=== PATIENT | female | born 1995 | race Caucasian/White ===

== ENCOUNTER 2023-07-30 16:56 | Emergency (ER) | payer OTHER ==
[2023-07-30 17:10] VITALS: BMI 28.3
[2023-07-30] MEDS ORDERED: SODIUM CHLORIDE 0.9% 500 ML INFUS.BAG IV ONE (19:50)
[2023-07-30] MEDS ORDERED: ACETAMINOPHEN 500 MG TABLET (FP) PO ONE (19:50)
[2023-07-30] MEDS ORDERED: ACETAMINOPHEN 500 MG TABLET (FP) ONE (20:03)
[2023-07-30 20:29] LABS: BASO % 0.6 % (0-2.0); EOS % 1.5 % (0-4.5); HEMATOCRIT 41.8 % (32.4-45.2); HEMOGLOBIN 13.6 GM/dL (10.7-15.3); LYMPH % 32.6 % (8-40); MCH 30.7 pg (25.7-33.7); MCHC 32.6 g/dl (32.0-36.0); MEAN CELL VOLUME 94.2 fl (80-96); MEAN PLT VOLUME 7.9 fl (7.5-11.1); NEUT % 59.3 % (42.8-82.8); PLATELET COUNT 308 10^3/uL (134-434); RBC 4.43 M/mm3 (3.60-5.2); RDW 13.2 % (11.6-15.6); WHITE BLOOD COUNT 11.1 K/mm3 (4.0-10.0)
[2023-07-30 20:38] LABS: URINE APPEARANCE CLEAR; URINE BILIRUBIN NEGATIVE (NEGATIVE); URINE COLOR YELLOW; URINE GLUCOSE (UA) NEGATIVE (NEGATIVE); URINE KETONE NEGATIVE (NEGATIVE); URINE LEUK ESTERASE NEGATIVE (NEGATIVE); URINE NITRITE NEGATIVE (NEGATIVE); URINE PROTEIN NEGATIVE (NEGATIVE); URINE UROBILINOGEN 0.2 mg/dL (0.2-1.0)
[2023-07-30 20:45] LABS: POTASSIUM 3.9 mmol/L (3.5-5.1)
[2023-07-30 20:47] LABS: CALCIUM 9.2 mg/dL (8.5-10.1)
[2023-07-30 20:48] LABS: BLOOD UREA NITROGEN 11.6 mg/dL (7-18)
[2023-07-30 20:51] LABS: CREATININE 0.6 mg/dL (0.55-1.3)
[2023-07-30 20:52] LABS: BILIRUBIN,TOTAL 0.2 mg/dL (0.2-1); TOT PROT 8.2 g/dl (6.4-8.2)
[2023-07-30] MEDS ORDERED: KETOROLAC TROMETHAMINE 30 MG/1 ML VIAL IVPUSH ONE (21:26)
[2023-07-30] MEDS ORDERED: KETOROLAC TROMETHAMINE 30 MG/1 ML VIAL ONE (21:27)
[2023-07-30] MEDS ORDERED: AMOX TR/POT CLAV 875MG/125MG TABLETS (FP) PO ONE (23:21)
[2023-07-30] MEDS ORDERED: AMOX TR/POT CLAV 875MG/125MG TABLETS (FP) ONE (23:22)
[2023-07-30 23:27] VITALS: BP 139/72; PULSE 70; RESP 18; TEMP 97.9
== END 2023-07-30 23:27 | disposition home or self-care (01) ==
LOC: JERFT 16:56
PROC: 3E0333Z Introduction of Anti-inflammatory into Peripheral Vein, Percutaneous Approach (ICD-10-PCS; principal; 2023-07-30)
DX: R50.9 Fever, unspecified (principal); R51.9 Headache, unspecified; R53.83 Other fatigue; J01.90 Acute sinusitis, unspecified; Z20.822 Contact with and (suspected) exposure to COVID-19
CPT/HCPCS: 0241U-QW; 36415; 71046-TC-FY; 80053; 81003; 84703; 85025; 87070; 87086; 87205; 87491; 87591; 87661; 99284-25

== ENCOUNTER 2023-10-14 12:49 | Emergency (ER) | payer OTHER ==
[2023-10-14 12:58] VITALS: BP 127/66; PULSE 85; RESP 18; TEMP 97.6; BMI 29.2
[2023-10-14 14:51] LABS: BASO % 0.4 % (0-2.0); EOS % 1.1 % (0-4.5); LYMPH % 25.7 % (8-40); MCHC 34.2 g/dl (32.0-36.0); MEAN CELL VOLUME 93.6 fl (80-96); MEAN PLT VOLUME 9.1 fl (7.5-11.1); MONO % 5.7 % (3.8-10.2); NEUT % 67.1 % (42.8-82.8); RBC 4.06 M/mm3 (3.60-5.2); RDW 12.8 % (11.6-15.6); WHITE BLOOD COUNT 12.2 K/mm3 (4.0-10.0)
[2023-10-14 14:53] LABS: PLATELET COUNT 296 10^3/uL (134-434)
[2023-10-14 15:01] LABS: POTASSIUM 5.3 mmol/L (3.5-5.1)
[2023-10-14 15:03] LABS: BLOOD UREA NITROGEN 8.6 mg/dL (7-18); CALCIUM 9.2 mg/dL (8.5-10.1)
[2023-10-14 15:06] LABS: CREATININE 0.5 mg/dL (0.55-1.3)
[2023-10-14 16:11] LABS: PH,URINE 5.5 (5.0-8.0); URINE APPEARANCE CLEAR; URINE BILIRUBIN NEGATIVE (NEGATIVE); URINE COLOR YELLOW; URINE GLUCOSE (UA) NEGATIVE (NEGATIVE); URINE KETONE NEGATIVE (NEGATIVE); URINE LEUK ESTERASE NEGATIVE (NEGATIVE); URINE NITRITE NEGATIVE (NEGATIVE); URINE PROTEIN NEGATIVE (NEGATIVE); URINE UROBILINOGEN 0.2 mg/dL (0.2-1.0)
== END 2023-10-14 18:35 | disposition home or self-care (01) ==
LOC: JER 12:49
DX: O26.891 Other specified pregnancy related conditions, first trimester (principal); R10.2 Pelvic and perineal pain; Z3A.01 Less than 8 weeks gestation of pregnancy
CPT/HCPCS: 36415; 76817-TC; 80048; 81003; 84702; 85025; 99284-25